=== PATIENT | female | born 1945 | race African-American/Black ===

== ENCOUNTER 2016-06-30 07:00 | Inpatient (IN) | payer MEDICARE ==
[2016-07-01 05:42] LABS: HCT 31.5 % (37.0-47.0); HGB 10.2 g/dl (12.5-16.0); MCH 26.8 pg (25.0-31.0); MCHC 32.4 g/dL (32.0-36.0); MCV 82.9 fL (78.0-100.0); MPV 9.5 fL (6.0-9.5); RBC 3.8 M/uL (4.20-5.40); RDW 17.5 % (11.5-14.0); WBC 15.7 K/uL (4.0-10.5)
[2016-07-01 06:03] LABS: CREATININE 1.5 mg/dL (0.5-1.0); POTASSIUM 4.5 mmol/L (3.5-5.1)
[2016-07-02 04:17] LABS: HCT 27.9 % (37.0-47.0); HGB 9.1 g/dl (12.5-16.0); MCH 26.9 pg (25.0-31.0); MCHC 32.6 g/dL (32.0-36.0); MCV 82.5 fL (78.0-100.0); MPV 9.6 fL (6.0-9.5); RBC 3.38 M/uL (4.20-5.40); RDW 17.6 % (11.5-14.0); WBC 15.5 K/uL (4.0-10.5)
[2016-07-02 04:47] LABS: POTASSIUM 4.8 mmol/L (3.5-5.1)
[2016-07-02 21:46] LABS: MYOGLOBIN 341 ng/mL (26-65); TROPONIN T < 0.010 ng/mL
[2016-07-02 21:50] LABS: CKMB 7.43 ng/mL (0.97-4.94); PRO-BNP 668 pg/mL (0-125)
--- NOTE | 2016-07-03 00:08 | NUR ---
AT 2035, INITIATED RAPID RESPONSE. PT WAS COMPLAINING OF HER "HEART RACING". DENIED CHEST PAIN. CNP OBTAINED VITALS (BP 230/106). TELEHOSPITALIST NOTIFIED AT 2036. RESPIRATORY WAS NOTIFIED FOR STAT EKG. ORDER GIVEN AT 2039 FOR LABETALOL 20MG IVP X ONE NOW. 2051-LABETALOL GIVEN OVER 3 MINUTES. EKG FAXED PER REQUEST OF . 2055-BP 160/73 HR 94 SAO2 100%, RR 20. RECHECKED AT 2056-BP 164/87 HR 89. PT STATED THAT SHE FELT BETTER AFTER RECEIVING THE LABETALOL. DAUGHTER COMFORTING PT AT BEDSIDE. PT DID APPEAR ANXIOUS, BUT NEVER COMPLAINED OF CHEST PAIN. AT 2099, DR. FREEMAN CALLED AND GAVE AN ORDER FOR CARDIAC ENZYMES X2. AT 2212, DR. FREEMAN WAS NOTIFIED OF THE RESULTS-NO FURTHER ORDERS GIVEN AND PT REMAINS FREE FROM CHEST PAIN.
[2016-07-03 03:30] LABS: HCT 25.6 % (37.0-47.0); HGB 8.5 g/dl (12.5-16.0); MCH 27.7 pg (25.0-31.0); MCHC 33.2 g/dL (32.0-36.0); MCV 83.4 fL (78.0-100.0); MPV 9.4 fL (6.0-9.5); RBC 3.07 M/uL (4.20-5.40); RDW 17.6 % (11.5-14.0); WBC 14.3 K/uL (4.0-10.5)
[2016-07-03 03:50] LABS: CREATININE 1.9 mg/dL (0.5-1.0); POTASSIUM 4.1 mmol/L (3.5-5.1)
[2016-07-03 03:51] LABS: MYOGLOBIN 255 ng/mL (26-65); TROPONIN T < 0.010 ng/mL
[2016-07-03 03:58] LABS: CKMB 5.93 ng/mL (0.97-4.94)
[2016-07-03 03:59] LABS: PRO-BNP 836 pg/mL (0-125)
[2016-07-04 04:39] LABS: HCT 27.1 % (37.0-47.0); HGB 8.6 g/dl (12.5-16.0); MCH 26.8 pg (25.0-31.0); MCHC 31.7 g/dL (32.0-36.0); MCV 84.4 fL (78.0-100.0); MPV 9.5 fL (6.0-9.5); RBC 3.21 M/uL (4.20-5.40); RDW 17.7 % (11.5-14.0); WBC 11.5 K/uL (4.0-10.5)
[2016-07-04 05:02] LABS: CREATININE 1.9 mg/dL (0.5-1.0); POTASSIUM 4.2 mmol/L (3.5-5.1)
== END 2016-07-04 13:15 | DRG 470 ==
LOC: FMS 07:00
PROVIDERS: Hospitalist; Internal Medicine Cardiovascular Disease; ADMIT Legal Medicine
PROC: 8E0YXBZ Computer Assisted Procedure of Lower Extremity (ICD-10-PCS; 2016-06-30)
PROC: 0SRD0J9 Replacement of Left Knee Joint with Synthetic Substitute, Cemented, Open Approach (ICD-10-PCS; principal; 2016-06-30 07:00)
DX: M17.12 Unilateral primary osteoarthritis, left knee (principal); E11.22 Type 2 diabetes mellitus with diabetic chronic kidney disease; N18.3 Chronic kidney disease, stage 3 (moderate); D62 Acute posthemorrhagic anemia; I12.9 Hypertensive chronic kidney disease with stage 1 through stage 4 chronic kidney disease, or unspecified chronic kidney disease; K21.9 Gastro-esophageal reflux disease without esophagitis; M19.90 Unspecified osteoarthritis, unspecified site; D64.9 Anemia, unspecified; Z86.718 Personal history of other venous thrombosis and embolism; Z86.711 Personal history of pulmonary embolism; Z90.710 Acquired absence of both cervix and uterus; Z88.8 Allergy status to other drugs, medicaments and biological substances; Z79.82 Long term (current) use of aspirin; Z83.3 Family history of diabetes mellitus; Z82.3 Family history of stroke; Z82.49 Family history of ischemic heart disease and other diseases of the circulatory system; Z22.322 Carrier or suspected carrier of Methicillin resistant Staphylococcus aureus
CPT/HCPCS: 36415; 73560; 80048; 82550; 82553; 82962; 83874; 83880; 84484; 86850; 86900; 86901; 88305; 88311; 93005; 94010; 94760; 94762; 97110; 97116; 97162; 97166; 97530-GP; 97535; C1713; C1776; J0131; J0697; J1100; J1170; J1815; J2270; J2405; J2704; J2710; J2795; J2916; J3010

== ENCOUNTER 2016-07-04 13:15 | Inpatient (IN) | payer MEDICARE | END 2016-07-10 13:09 | disposition home health service (06) | DRG 554 | LOC: FSNU 13:15 | PROVIDERS: ADMIT Internal Medicine Cardiovascular Disease | DX: M17.12 Unilateral primary osteoarthritis, left knee (principal); E11.22 Type 2 diabetes mellitus with diabetic chronic kidney disease; N18.3 Chronic kidney disease, stage 3 (moderate); D62 Acute posthemorrhagic anemia; I12.9 Hypertensive chronic kidney disease with stage 1 through stage 4 chronic kidney disease, or unspecified chronic kidney disease; K21.9 Gastro-esophageal reflux disease without esophagitis; M19.90 Unspecified osteoarthritis, unspecified site; D64.9 Anemia, unspecified; Z86.718 Personal history of other venous thrombosis and embolism; Z86.711 Personal history of pulmonary embolism; Z90.710 Acquired absence of both cervix and uterus; Z88.8 Allergy status to other drugs, medicaments and biological substances; Z79.82 Long term (current) use of aspirin; Z83.3 Family history of diabetes mellitus; Z82.3 Family history of stroke; Z82.49 Family history of ischemic heart disease and other diseases of the circulatory system; Z22.322 Carrier or suspected carrier of Methicillin resistant Staphylococcus aureus; Z47.1 Aftercare following joint replacement surgery; Z96.652 Presence of left artificial knee joint | CPT/HCPCS: 82962; 97110; 97116; 97161; 97166; 97530; 97530-GP; 97535; 97537; J1815 ==